=== PATIENT | female | born 1995 | race Caucasian/White ===

== ENCOUNTER → 2018-08-22 00:24 | Observation (INO) ==
[2018-08-21 23:19] LABS: Amphetamine Screen,Urine Negative ng/mL (Cutoff=1000); Barbiturate Screen,Urine Negative ng/mL (Cutoff=200); Benzodiazepines Screen,Urine Negative ng/mL (Cutoff=200); Cannabinoid Screen,Urine Negative ng/mL (Cutoff = 50); Cocaine Screen,Urine Negative ng/mL (Cutoff= 300); Opiate Screen,Urine Negative ng/mL (Cutoff=300); Phencyclidine Screen,Urine Negative ng/mL (Cutoff=25)
[2018-08-21 23:56] LABS: Trichomonas DNA Not Detected (Not Detect)
[2018-08-21 23:57] LABS: Candida DNA DETECTED (Not Detect); Gardnerella DNA DETECTED (Not Detect)
--- NOTE | 2018-08-22 00:09 | Discharge Summary ---
Date of Encounter: 08/22/18 Time of Encounter: 00:08 - Discharge Diagnosis (1) 37 weeks gestation of Priority: Primary Status: Acute Comments: Follow-up with Dr. Castrejon as scheduled Labor parameters discussed Discharge home (2) Bacterial vaginosis Priority: Secondary Status: Acute Comments: Prescription for Flagyl 500 mg twice a day 7 days given (3) Vulval candidiasis Priority: Secondary Status: Acute Comments: Clotrimazole 1% daily at bedtime for 7 consecutive days - Discharge Medications Prescriptions: Clotrimazole 1% CRM [Lotrimin 1%] 1 appl VG HS 7 Days #1 tube metroNIDAZOLE [Metronidazole] 500 mg PO BID #14 tablet Home Medications: Clotrimazole 1% CRM [Lotrimin 1%] 1 appl VG HS 7 Days #1 tube 08/22/18 [Rx] metroNIDAZOLE [Metronidazole] 500 mg PO BID #14 tablet 08/22/18 [Rx] Data Procedures and tests throughout hospitalization: Laboratory Tests 08/21/18 08/21/18 22:56 22:58 Urine Opiates Screen Negative Ur Barbiturates Screen Negative Ur Phencyclidine Scrn Negative Ur Amphetamines Screen Negative U Benzodiazepines Scrn Negative Urine Cocaine Screen Negative U Marijuana (THC) Screen Negative Ur Drug Screen Interp See Below Ashlie species DNA DETECTED A Gardnerella DNA Probe DETECTED A Trichomonas DNA Probe Not Detected Labs on day of discharge: Labs from last 24 hours 08/21/18 08/21/18 22:58 22:56 Urine Opiates Screen Negative Ur Barbiturates Screen Negative Ur Phencyclidine Scrn Negative Ur Amphetamines Screen Negative U Benzodiazepines Scrn Negative Urine Cocaine Screen Negative U Marijuana (THC) Screen Negative Ur Drug Screen Interp See Below Ashlie species DNA DETECTED A Gardnerella DNA Probe DETECTED A Trichomonas DNA Probe Not Detected Date of admission: 08/21/18 22:04 Discharging clinician: Bhumika Kyle Anticipated date of discharge: 08/22/18 - Patient Status Disposition: Home, Self-Care Condition: Good Functional capacity at discharge: independent ambulation Overall status at discharge: patient is progressing back to baseline - Discharge Instructions Follow Up With: Annabelle Castrejon DO [Partnered Physician] - - Diet and Activity Activity: increase activity as tolerated Diet: regular diet Hospital Course [employer] SU[employer]IST Reason for admission: other Discharge diagnosis: other Hospital course: Patient presents to labor and delivery with complaints of leakage of fluid intermittently since last night. She reports 1 episode of intercourse last night and when this morning. She states the leaking started after intercourse last night. She denies any odor or irritation associated with the leaking. Fern test was negative. Vaginosis panel is positive for both yeast and BV. Prescriptions were given. Cervical exam was unchanged from office /-. Patient was sent home in stable condition Time Attestation: Total time spent providing and/or coordinating discharge services: Time Spent: Less than 30 minutes Exam - Constitutional General appearance IM: A&O X 3 - Respiratory Respiratory exam: Present: CTAB - Cardiovascular Cardiovascular exam IM: Present: RRR, +S1, +S2 - GI/Abdominal GI/Abdominal exam IM: normal bowel sounds, no peritoneal signs - Rectal Rectal exam: deferred - Uterine Tone: Firm - Extremities Exam Extremities exam IM: Present: normal capillary refill, normal inspection, radial pulses palpable and symmetrical - Neurological Exam Neurological exam: alert, CN II-XII intact, normal gait, oriented X3, reflexes normal, no focal deficits, strengths equal and symetr throughout - VTE Reasons for not Prescribing Prophylaxis: Treatment not Indicated - Low risk for VTE
== END | disposition home or self-care (01) ==
LOC: 1NENULAB
PROVIDERS: ADMIT Advanced Practice Midwife; ATTEND Advanced Practice Midwife

== ENCOUNTER 2018-08-22 05:07 | Inpatient (IN) ==
[~2018-08-22 05:07] MED LIST: *HR* Nalbuphine 10 MG/ML AMPUL IVP PRN; Famotidine 20 MG/2 ML VIAL IVP PRN; Lidocaine 1% 20 ML MDV INFILT PRN; Metoclopramide 10 MG/2 ML VIAL IVP PRN; Naloxone 0.4 MG/ML INJ IVP PRN; Ondansetron 4 MG/2 ML VIAL IVP PRN
[2018-08-22] MEDS ORDERED: Ringers Solution, Lactated 1,000 ML IVC SCH (05:15)
--- NOTE | 2018-08-22 05:20 | OB/GYN History & Physical ---
Date of Encounter: 08/22/18 Time of Encounter: 05:15 Assessment and Plan (1) SROM (spontaneous rupture of membranes) Current visit: Yes Status: Acute Expectant management (2) Intrauterine Current visit: Yes Status: Acute Admit to L&D for observation of labor Expectant management - will consider augmentation if no change after several hours GBS -, no prophylaxis required Pain mangement plan is epidural - may have that or nubain on request SROM - Anticipate (3) 37 weeks gestation of Current visit: Yes Status: Acute History of Present Illness Chief complaint: SROM 0350 HPI: Ms. Nicolas is a 22 year old female at 37 weeks 5 days gestation with an estimated date of of 09/07/18 dated by LMP. She presents this evening with complaints of spontaneous rupture of membranes at 0350 this morning. She endorses good movement and denies vaginal bleeding. She does report early labor contractions that are at the bottom of her abdomen and feel like period cramps. She reports clear fluid and no odor. Labs: A+ GBS- Hep B- HIV- RPR NR GC/CL- Rubella immune Varicella immune Past Med Surg Social Fam HX - Past Medical History Medical history: no medical history Psychiatric history: no psych history - Past Surgical History Surgical History: no surgical history - Social History Smoking Status: Never smoker Smokeless Tobacco Status: No Alcohol use: none Drug use: none - Family History Mother Living Status: Still Living Hx Family Cardiac Disorders: No Hx Family Respiratory Disorders: No Hx Family Cancer: Yes (skin cancer) Hx Family GI Disorders: No Hx Family Endocrine Disorder: No Hx Family Neuromuscular Disorders: No Hx Family Neurologic Disorders: No Hx Family HEENT Disorders: No Hx Family Autoimmune Disorders: No Obstetrical History - Pregnancies : 1 Para: 0 Term: 0 : 0 Ab's: 0 Livin Medications and Allergies Clotrimazole 1% CRM [Lotrimin 1%] 1 appl VG HS 7 Days #1 tube 08/22/18 [Rx] metroNIDAZOLE [Metronidazole] 500 mg PO BID #14 tablet 08/22/18 [Rx] Allergy/AdvReac Type Severity Reaction Status Date / Time No Known Allergies Allergy Verified 08/22/18 01:18 Review of System OB All systems PM: reviewed and no additional remarkable complaints except as stated Exam - Constitutional Constitutional: well developed, well nourished, no acute distress, obese - HEENT HEENT: Normocephaly, Mucus Membranes Moist - Neck Neck exam: full ROM - Lungs Respiratory exam: CTAB - Cardiovascular Cardiovascular exam: RRR, +S1, +S2 - Breasts Breast: bilateral: normal - Abdomen Abdomen: Present: bowel sounds normal, gravid, non tender - Extremities Extremities exam: normal capillary refill, normal inspection, radial pulses palpable and symmetrical - Vulva Vulva: bilateral: normal - Vagina Vagina: Present: normal moisture - Cervix Dilation: 3 Effacement: 80 Station: -2 - Uterus Uterus exam: Present: normal size, normal contour - Adnexa Adnexa: bilateral: normal - Anus/Rectum Anus/Rectum: Present: normal perianal skin Results All other labs normal. - VTE Reasons for not Prescribing Prophylaxis: Treatment not Indicated - Low risk for VTE
[2018-08-22 05:59] LABS: Basophils # 0.1 K/mcL (0.0-0.2); Basophils % 0.3 %; Eosinophils # 0.1 K/mcL (0.0-0.6); Eosinophils % 0.8 %; Hematocrit 41.2 % (35.3-44.9); Hemoglobin 13.7 g/dL (11.5-15.4); Immature Granulocytes % 0.6 % (0-4); Lymphocytes # 2.7 K/mcL (0.6-4.6); Mean Corpuscular HGB Conc 33.3 g/dL (31.6-35.5); Mean Corpuscular Hemoglobin 32.2 pg (28.0-33.3); Mean Corpuscular Volume 96.9 fL (83.0-100.0); Mean Platelet Volume 12.3 fL (9.4-12.4); Monocytes # 1.5 K/mcL (0.0-1.3); Monocytes % 9.2 %; Neutrophils # 11.6 K/mcL (1.6-8.9); Platelet Count 222 K/mcL (140-400); Red Blood Count 4.25 M/mcL (3.82-4.97); Red Cell Distribution Width 13.3 % (11.5-14.5); Segmented Neutrophils % 72.1 %
[2018-08-22] MEDS ORDERED: Epidural Premix (fent/bupiv) 110 ML EP SCH (07:30)
--- NOTE | 2018-08-22 08:23 | OB Labor Progress Note ---
Date of Encounter: 08/22/18 Time of Encounter: 08:22 Labor Progress Note - Subjective Subjective: Patient coping well with contractions. She is currently up on birthing ball with significant other at side. - Vital Signs Vital Signs: WNL, Afebrile - Cervix Cervix: 5/90/-1 - Heart Tones Heart Tones: FHR 130 bpm, moderate variability, +15x15 accels, no decels. - [place]: 5-6 bpm - Interventions Interventions: SVE AROM forebag for scant amount clear fluid Discussed augmentation options with patient. She is agreeable to begin Pitocin augmentation after epidural placement - Plan Physician notified: Yes Physician notified details: Dr. Soares aware of patient progress and plan of care Plan: Patient desires epidural at this time. Begin Pitocin augmentation after placement of epidural Anticipate
[2018-08-22] MEDS ORDERED: Lidocaine -MPF 1% 5 ML AMPUL ONE (09:05)
--- NOTE | 2018-08-22 10:00 | Anesthesia Evaluation PreOp ---
Date of Encounter: 08/22/18 Time of Encounter: 09:00 - Past History Planned Operation: ARIEL Cardiac History: Denies any Significant Hx Pulmonary History: Denies Any Significant HX HOTEL FRONT DESK CLERK History: Denies Any Significant HX Other Medical History: Denies Any Significant HX Anesthesia History: No Prior Anesthetic Complications : Yes Alcohol Use: none Drug use: none Medications and Allergies Clotrimazole 1% CRM [Lotrimin 1%] 1 appl VG HS 7 Days #1 tube 08/22/18 [Rx] Pnv95/Ferrous Fumarate/FA [ Vitamin Tablet] 1 tab PO DAILY 08/22/18 [History] metroNIDAZOLE [Metronidazole] 500 mg PO BID #14 tablet 08/22/18 [Rx] Allergy/AdvReac Type Severity Reaction Status Date / Time No Known Allergies Allergy Verified 08/22/18 01:18 - Meds/Allergy Pre-op Review Medications Reviewed: Yes Allergies Reviewed: Yes Beta Blockers on Current Med List: No Anesthesia Results - Labs 08/22/18 05:20 Anesthesia Exam - HEENT Pupil (Motor): Pupils equal Mallampati: II Oral Opening: Greater than 3 - HOTEL [employer] DESK CLERK LOC: Oriented [employer]OT[employer] FRONT DESK CLERK Motor: Normal RUE, Normal LUE, Normal RLE, Normal LLE, Normal Face HOTEL FRONT DESK CLERK Sensory: Normal: RUE, LUE, RLE, LLE, Face - Cardiac Rhythm: Regular Murmur: None JVD: No Carotid Bruit: No - Pulmonary Breath Sounds: bilateral Clear Respiratory Effort: Symmetrical Anesthesia Assess/Plan ASA Score: 2 Level of consciousness: Cooperative Anesthetic Plan: Epidural Monitoring Plan: Standard Monitors
--- NOTE | 2018-08-22 10:03 | Anesthesia Procedures ---
Addendum entered and electronically signed by Jovany Au CRNA 08/22/18 16:49: Infant Delivery Date: 08/22/18 Infant Delivery Time: 15:06 Original Note: Date of Encounter: 08/22/18 Time of Encounter: 09:00 Procedures: Anesthesia - Epidural/Spinal Patient ID/Chart reviewed: Yes Patient examined: Yes OB Eval: Gestational age: 37.5 OB Eval: : 1 OB Eval: Hx Para: 0 OB Eval: Dilated at (cm): 5 OB Eval: Contractions: Non-stressed pattern Consent Obtained: Yes Site Prep: Aseptic Technique, Sterile prep and drape, Povidone-Iodine 1% Patient position: upright Amount of Local Anesthetic used: 3 Touhy Needle Gauge: 18 Touhy Needle Depth (cm): 6 Catheter Depth at Skin (cm): 8 Test Dose (1.5% Lido + Epi): Volume given (mls): 3 Test Dose Result: Negative Infusion Rate (mls/hr): [address]: Tegaderm Interspace Used: L4-L5 Loss of Resistance (MATIAS): Yes Blood: No CSF: No Paresthesia: No Vitals + FHT's: VSS FHT stable throughout see nursing notes
[2018-08-22] MEDS ORDERED: Oxytocin 20 units/ LR 1000 mL 20 UNIT/1,000 ML BAG IVC SCH ×2 (10:30→16:47)
[2018-08-22] MEDS ORDERED: 0.9 % Sodium Chloride 1,000 ML ONE (10:40)
--- NOTE | 2018-08-22 10:48 | OB Labor Progress Note ---
Date of Encounter: 08/22/18 Time of Encounter: 10:44 Labor Progress Note - Subjective Subjective: Patient without pain after epidural placement. Resting comfortably - Vital Signs Vital Signs: WNL, Afebrile - Cervix Cervix: 7/90/-1 - Heart Tones Heart Tones: FHR 125 bpm, moderate variability, +15x15 accels, one 7 minute deceleration, resolved with position change and fluid bolus. - [place]: 5-6 minutes - Interventions Interventions: SVE Position change, IVF bolus FSE & IUPC placed Amnioinfusion started - Plan Physician notified: Yes Physician notified details: Dr. Soares in room for deceleration and interventions. Plan: Continue labor management May initiate Pitocin after reactive tracing established Amnioinfusion
--- NOTE | 2018-08-22 13:18 | OB Labor Progress Note ---
Date of Encounter: 08/22/18 Time of Encounter: 13:14 Labor Progress Note - Subjective Subjective: Patient comfortable with epidural in place - Vital Signs Vital Signs: WNL, Afebrile - Cervix Cervix: Anterior lip/ 0 station - Heart Tones Heart Tones: FHR 120 bpm, moderate variability, +15x15 accels, occassional variable decel, prolonged decel with return to baseline after interventions. - [place]: 3-4 minutes - Interventions Interventions: SVE Attemted to push with one contractions. Maternal efforts ineffective Position change - Plan Physician notified: Yes Physician notified details: Dr. Soares at nurses station and aware of FHR tracing and SVE Plan: Discussed laboring down with patient and she is agreeable to this as long as baby tolerates. Will continue expectant management Anticipate
--- NOTE | 2018-08-22 16:04 | Discharge Summary ---
Date of Encounter: 08/22/18 - Discharge Medications Home Medications: Clotrimazole 1% CRM [Lotrimin 1%] 1 appl VG HS 7 Days #1 tube 08/22/18 [Rx] Pnv95/Ferrous Fumarate/FA [ Vitamin Tablet] 1 tab PO DAILY 08/22/18 [History] metroNIDAZOLE [Metronidazole] 500 mg PO BID #14 tablet 08/22/18 [Rx] Allergies/Adverse Reactions: Allergy/AdvReac Type Severity Reaction Status Date / Time No Known Allergies Allergy Verified 08/22/18 01:18 Data Procedures and tests throughout hospitalization: Laboratory Tests 08/22/18 05:20 WBC 16.0 H RBC 4.25 Hgb 13.7 Hct 41.2 MCV 96.9 MCH 32.2 MCHC 33.3 RDW 13.3 Plt Count 222 MPV 12.3 Immature Gran % 0.6 Seg Neutrophils % 72.1 Lymphocytes % 17.0 Monocytes % 9.2 Eosinophils % 0.8 Basophils % 0.3 Neutrophils # 11.6 H Lymphocytes # 2.7 Monocytes # 1.5 H Eosinophils # 0.1 Basophils # 0.1 Labs on day of discharge: Labs from last 24 hours 08/22/18 05:20 WBC 16.0 H RBC 4.25 Hgb 13.7 Hct 41.2 MCV 96.9 MCH 32.2 MCHC 33.3 RDW 13.3 Plt Count 222 MPV 12.3 Immature Gran % 0.6 Seg Neutrophils % 72.1 Lymphocytes % 17.0 Monocytes % 9.2 Eosinophils % 0.8 Basophils % 0.3 Neutrophils # 11.6 H Lymphocytes # 2.7 Monocytes # 1.5 H Eosinophils # 0.1 Basophils # 0.1 Date of admission: 08/22/18 04:57 Hospital Course Time Attestation: Total time spent providing and/or coordinating discharge services:
--- NOTE | 2018-08-22 16:07 | OB/GYN Procedure Note ---
Delivery - Delivery Date: 08/22/18 Provider: Lelia Carrero Delivery induction: none Delivery monitor: internal FHT, internal uterine Anesthesia: epidural Quantitated Blood Loss: 100 - (s) A Infant Delivery Date: 08/22/18 Delivery Time: 15:06 Presentation: vertex Position: VIET Route of delivery: Gender: Female Viability: Viable Pounds: 7 Ounces: 1 at 1 minute: 7 at 5 mins: 7 Shoulder Dystocia: not encountered Specimens collected: cord blood Placenta: spontaneous Cord: 3 umbilical vessels - Repair Episiotomy: none Laceration Description: Perineal - 1st Degree, Labial - Complications Delivery complications: none Delivery comments: Called to room for delivery. Under maternal effort, spontaneous delivery of viable female infant over first-degree perineal laceration. placed on maternal abdomen for drying and stimulation. Cord clamped and cut at request of nursery nurse. Apgars 7 and 7 at one and 5 minutes respectively. Infant required 15 seconds of PPV . Spontaneous delivery of intact placenta, EBL 100 mL's. No nuchal cord, shoulder dystocia, or meconium encountered. Mother and infant in kangaroo care. Infant will be taken to the special care nursery for 6 hour observation due to resuscitation measures. First-degree perineal laceration repaired with 3-0 Vicryl. Extensive lacerations noted to bilateral labia and periurethral area. Dr. Sauceda requested to repair those lacerations. Called to labor and delivery room for evaluation of perineum and vagina after delivery by retail greeting card merchandiser. Mother and baby doing well. Patient currently with epidural. Experiencing no pain. Vulva and vagina were examined. Right labia minora with large laceration through the entire labia itself. Left labia in two and adhering to the vulva at the base of each portion. I began repairing at the anterior portion first on the right side repairing the labia with interrupted sutures taking the external mucosa with approximate 4 individual stitches. The inside of the labia was then reattached in a similar fashion. Again there was minimal blood loss throughout this entire repair. The left labia was examined. The anterior portion which had been torn off was brought down to its correct position and reattached internally and externally and at the base. The inferior portion which had torn off was repaired in a similar fashion with the external mucosa be reapproximated in the internal mucosa reapproximated with internal stitches. The 2 portions of labia that were then reapproximated together. Perineum was good no lacerations needing repair retail greeting card merchandiser and done a good job here. - Disposition Mom disposition: stable in LDR disposition: stable in LDR
[2018-08-22] MEDS ORDERED: Acetaminophen 325 MG TABLET PO PRN (16:47)
[2018-08-22] MEDS ORDERED: Ibuprofen 600 MG TABLET PO ONE (16:47)
[2018-08-22] MEDS ORDERED: Benzocaine/Menthol 56 GM AEROSOL SPRAY TP PRN (16:47)
[2018-08-22] MEDS ORDERED: Lanolin 7 G OINT...G. TP PRN (16:47)
[2018-08-22] MEDS ORDERED: Measles/Mumps/Rubella Vacc 0.5 ML VIAL SQ PRN (16:47)
[2018-08-22] MEDS ORDERED: Fluconazole 100 MG TABLET PO ONE (18:30)
[2018-08-22] MEDS: metroNIDAZOLE 500 MG TABLET PO SCH (20:13)
[2018-08-23] MEDS: Ibuprofen 600 MG TABLET PO PRN ×2 (00:15→20:48)
[2018-08-23] MEDS ORDERED: *HR* HYDROcodone/Acet 5/325 mg TABLET PO PRN (07:01)
[2018-08-23] MEDS: Prenatal Vit/FA 1 EACH TABLET PO SCH (09:03)
--- NOTE | 2018-08-23 09:18 | OB/GYN Progress Note ---
Date of Encounter: 08/23/18 Time of Encounter: 09:12 - Assessment and Plan (1) Vaginal delivery Current Visit: Yes Status: Acute Continue routine Anticipate discharge home Subjective - Subjective Principal diagnosis: Vaginal delivery Interval history: S/P vaginal delivery day 1 Pain well controlled; labia sore after extensive repair Lochia light and without clots VSS Tolerating regular diet; passing flatus Voiding without difficulty Breast feeding Anticipate discharge home tomorrow POC per consult with Dr Franco Patient reports: appetite normal, voiding normally, pain well controlled, ambulating normally [place]: doing well, nursing well Objective - Latest Vital Signs Latest vital signs: Vital Signs Temp Pulse Pulse Resp BP Pulse Ox 08/23/18 07:40 97.7 F 87 16 107/69 94 08/23/18 03:51 97.5 F L 99 16 108/70 97 08/22/18 20:15 97.5 F L 93 16 110/73 99 08/22/18 19:15 98.3 F 96 100 16 108/71 96 08/22/18 18:15 99 F 100 100 16 120/80 Intake and Output 08/22/18 08/23/18 08/23/18 23:59 07:59 15:59 Intake Total 500 / 500 Output Total 2099 / 2099 Balance -1600 / -1600 Intake: Oral 500 / 500 Output: Urine 2099 - Exam Lungs: bilateral: normal Chest: Normal S1, Normal S2 Extremities: Present: normal Abdomen: Present: normal appearance, soft. Absent: gravid, tenderness Uterus: Present: normal, firm Uterus Position: At Umbilicus, Midline
[2018-08-23] MEDS: metroNIDAZOLE 500 MG TABLET PO SCH ×2 (09:52→20:48)
[2018-08-24 08:15] VITALS: BP 100/64
[2018-08-24] MEDS: Ibuprofen 600 MG TABLET PO PRN (08:53)
[2018-08-24] MEDS: metroNIDAZOLE 500 MG TABLET PO SCH (08:54)
[2018-08-24] MEDS: Prenatal Vit/FA 1 EACH TABLET PO SCH (08:54)
--- NOTE | 2018-08-24 08:59 | Discharge Summary ---
Date of Encounter: 08/24/18 Time of Encounter: 08:57 - Discharge Diagnosis (1) Obstetric labial laceration, delivered, current hospitalization Priority: Secondary Status: Acute Comments: Patient states her pain is well-controlled with scheduled medications. She has Epifoam and Dermoplast and is using them as needed Labia are intact, well perfused, and not swollen. To follow-up in 4 weeks as scheduled for routine as part of visit with Dr. Castrejon. (2) Vaginal delivery Priority: Primary Status: Acute Comments: Patient meeting day two milestones. Pain well-controlled with prescribed medications. Voiding without difficulty. No bowel movement yet. Anticipate discharge today - Discharge Medications Prescriptions: Ibuprofen [Motrin] 600 mg PO Q6HR PRN #60 tablet PRN Reason: Cramping Benzocaine/Menthol [place] [Dermoplast [place]] 1 appl TP QID PRN #1 bottle PRN Reason: See Comments Docusate [Colace] 100 mg PO BID #60 capsule Home Medications: Pnv95/Ferrous Fumarate/FA [ Vitamin Tablet] 1 tab PO DAILY 08/22/18 [History] metroNIDAZOLE [Metronidazole] 500 mg PO BID #14 tablet 08/22/18 [Rx] Acetaminophen [Tylenol] 650 mg PO Q6HR PRN tablet 08/24/18 [Rx] Benzocaine/Menthol [place] [Dermoplast [place]] 1 appl TP QID PRN #1 bottle 08/24/18 [Rx] Dibucaine [Nupercainal] 1 appl TP HS PRN tube 08/24/18 [Rx] Docusate [Colace] 100 mg PO BID #60 capsule 08/24/18 [Rx] Hydrocortisone/Pramoxine [Epifoam] 1 appl TP TID bottle 08/24/18 [Rx] Ibuprofen [Motrin] 600 mg PO Q6HR PRN #60 tablet 08/24/18 [Rx] Lanolin [Lansinoh] 1 appl TP TID PRN oint...g. 08/24/18 [Rx] Allergies/Adverse Reactions: Allergy/AdvReac Type Severity Reaction Status Date / Time No Known Allergies Allergy Verified 08/22/18 01:18 Data Procedures and tests throughout hospitalization: Laboratory Tests 08/22/18 05:20 WBC 16.0 H RBC 4.25 Hgb 13.7 Hct 41.2 MCV 96.9 MCH 32.2 MCHC 33.3 RDW 13.3 Plt Count 222 MPV 12.3 Immature Gran % 0.6 Seg Neutrophils % 72.1 Lymphocytes % 17.0 Monocytes % 9.2 Eosinophils % 0.8 Basophils % 0.3 Neutrophils # 11.6 H Lymphocytes # 2.7 Monocytes # 1.5 H Eosinophils # 0.1 Basophils # 0.1 Date of admission: 08/22/18 05:07 Primary care physician: PCP PEDRO Consults: 08/22/18 16:47 Consult to Personal Injury Legal Assistant [CONS] Routine Comment: Vaginal delivery, consult needed Discharging clinician: Lelia Carrero Anticipated date of discharge: 08/24/18 - Patient Status Disposition: Home, Self-Care Condition: Good Functional capacity at discharge: independent ambulation Overall status at discharge: patient is progressing back to baseline - Discharge Instructions Follow Up With: NONE,PCP [Primary Care Provider] - Annabelle Castrejon DO [Partnered Physician] - - Diet and Activity Activity: resume usual activities as tolerated Diet: regular diet Hospital Course Reason for admission: active labor Delivery: Episiotomy: none Laceration: other (extensive labial lacerations) Other procedures: none complications: none Discharge diagnosis: IUP at term delivered baby: female Hospital course: Patient meeting day milestones. Pain well-controlled with prescribed medications. She does not feel she needs Vicodin to go home with as the spray and Motrin are more helpful for her pain. Voiding without difficulty, bleeding light to moderate, tolerating regular diet. No bowel movement yet. Anticipate discharge today - Delivery Date: 08/22/18 Provider: Lelia Carrero Delivery induction: none Delivery monitor: internal FHT, internal uterine Anesthesia: epidural Quantitated Blood Loss: 100 - Infant (s) Infant A Delivery Date: 08/22/18 Delivery Time: 15:06 Presentation: vertex Position: VIET Route of delivery: Gender: Female Viability: Viable Pounds: 7 Ounces: 1 at 1 minute: 7 at 5 mins: 7 Shoulder Dystocia: not encountered Specimens collected: cord blood Placenta: spontaneous Cord: 3 umbilical vessels - Repair Episiotomy: none Laceration Description: Perineal - 1st Degree, Labial - Complications Delivery complications: none Delivery comments: Called to room for delivery. Under maternal effort, spontaneous delivery of viable female infant over first-degree perineal laceration. placed on maternal abdomen for drying and stimulation. Cord clamped and cut at request of nursery nurse. Apgars 7 and 7 at one and 5 minutes respectively. Infant required 15 seconds of PPV . Spontaneous delivery of intact placenta, EBL 100 mL's. No nuchal cord, shoulder dystocia, or meconium encountered. Mother and infant in kangaroo care. will be taken to the special care nursery for 6 hour observation due to resuscitation measures. First-degree perineal laceration repaired with 3-0 Vicryl. Extensive lacerations noted to bilateral labia and periurethral area. Dr. Sauceda requested to repair those lacerations. Called to labor and delivery room for evaluation of perineum and vagina after delivery by benefits assistant. Mother and baby doing well. Patient currently with epidural. Experiencing no pain. Vulva and vagina were examined. Right labia minora with large laceration through the entire labia itself. Left labia in two and adhering to the vulva at the base of each portion. I began repairing at the anterior portion first on the right side repairing the labia with interrupted sutures taking the external mucosa with approximate 4 individual stitches. The inside of the labia was then reattached in a similar fashion. Again there was minimal blood loss throughout this entire repair. The left labia was examined. The anterior portion which had been torn off was brought down to its correct position and reattached internally and externally and at the base. The inferior portion which had torn off was repaired in a similar fashion with the external mucosa be reapproximated in the internal mucosa reapproximated with internal stitches. The 2 portions of labia that were then reapproximated together. Perineum was good no lacerations needing repair benefits assistant and done a good job here. - Disposition Mom disposition: stable in LDR disposition: stable in LDR Time Attestation: Total time spent providing and/or coordinating discharge services: Time Spent: Less than 30 minutes Exam - Constitutional Vitals: Temp Pulse Resp BP Pulse Ox 98.1 F 80 14 100/64 97 08/24/18 08:14 08/24/18 08:14 08/24/18 08:14 08/24/18 08:14 08/24/18 08:14 General appearance IM: pleasant, no acute distress, answers questions appropriately - Respiratory Respiratory exam: Present: CTAB - Cardiovascular Cardiovascular exam IM: Present: RRR, +S1, +S2 - GI/Abdominal GI/Abdominal exam IM: normal bowel sounds - Rectal Rectal exam: deferred - Uterine Tone: Firm Uterus Position: 1 Finger Below Umbilicus - Extremities Exam Extremities exam IM: Present: full ROM, normal capillary refill, normal inspection, pedal edema - Neurological Exam Neurological exam: alert, normal gait, oriented X3
== END 2018-08-24 16:52 | disposition home or self-care (01) | DRG 807 ==
LOC: 1NENULAB → 1NENUOBS 19:46
PROVIDERS: ADMIT Advanced Practice Midwife; ATTEND Advanced Practice Midwife

== ENCOUNTER 2021-11-04 09:49 | Inpatient (IN) ==
[2021-11-04] MEDS ORDERED: Famotidine 20 MG/2 ML VIAL IVP PRN (10:38)
[2021-11-04] MEDS ORDERED: miSOPROStoL 25 MCG TABLET VG PRN (10:38)
[2021-11-04] MEDS ORDERED: *HR* Nalbuphine 10 MG/ML AMPUL IV PRN (10:38)
[2021-11-04] MEDS ORDERED: Naloxone 0.4 MG/ML INJ IVP PRN ×2 (10:38→12:18)
[2021-11-04] MEDS ORDERED: Metoclopramide 10 MG/2 ML VIAL IVP PRN (10:38)
[2021-11-04] MEDS ORDERED: Ringers Solution, Lactated 1,000 ML IVC SCH (10:45)
[2021-11-04 12:02] LABS: Basophils # 0.1 K/mcL (0.0-0.2); Basophils % 0.5 %; Eosinophils % 0.3 %; Hematocrit 43.5 % (35.3-44.9); Hemoglobin 14.1 g/dL (11.5-15.4); Immature Granulocytes % 0.6 % (0-4); Lymphocytes # 2.5 K/mcL (0.6-4.6); Lymphocytes % 19.3 %; Mean Corpuscular HGB Conc 32.4 g/dL (31.6-35.5); Mean Corpuscular Hemoglobin 31.2 pg (28.0-33.3); Mean Corpuscular Volume 96.2 fL (83.0-100.0); Mean Platelet Volume 12.4 fL (9.4-12.4); Monocytes # 0.9 K/mcL (0.0-1.3); Monocytes % 7.2 %; Neutrophils # 9.4 K/mcL (1.6-8.9); Platelet Count 239 K/mcL (140-400); Red Blood Count 4.52 M/mcL (3.82-4.97); Red Cell Distribution Width 13.9 % (11.5-14.5); Segmented Neutrophils % 72.1 %
[2021-11-04] MEDS ORDERED: *HR* FentaNYL (PF) 100 MCG/2 ML VIAL EP ONE (12:18)
[2021-11-04] MEDS ORDERED: EPHEDrine 50 MG/ML VIAL IVP PRN (12:18)
[2021-11-04] MEDS ORDERED: Ondansetron 4 MG/2 ML VIAL IVP PRN (12:18)
[2021-11-04] MEDS ORDERED: Ropivacaine/PF 0.2% 20 ML VIAL EP ONE (12:18)
[2021-11-04] MEDS ORDERED: Epidural Premix (fent/bupiv) 110 ML EP SCH (12:30)
[2021-11-04 12:34] LABS: Alanine Aminotransferase 7 Units/L (7-52); Aspartate Amino Transferase 12 Units/L (13-39); BUN/Creatinine Ratio 9 (6-26); Blood Urea Nitrogen 6 mg/dL (6-20); Lactate Dehydrogenase 134 Units/L (140-271); Uric Acid 4.7 mg/dL (2.3-7.6); eGFR For African Americans > 60 (> 60); eGFR For Non-African Americans > 60 (> 60)
[2021-11-04 13:27] LABS: Amphetamine Screen,Urine Negative ng/mL (Cutoff=1000); Barbiturate Screen,Urine Negative ng/mL (Cutoff=200); Benzodiazepines Screen,Urine Negative ng/mL (Cutoff=200); Cannabinoid Screen,Urine Negative ng/mL (Cutoff = 50); Cocaine Screen,Urine Negative ng/mL (Cutoff= 300); Creatinine,Urine 145 mg/dL; Opiate Screen,Urine Negative ng/mL (Cutoff=300); Phencyclidine Screen,Urine Negative ng/mL (Cutoff=25); Protein/Creatinine Ratio,Urine 0.63 mg/mg (0.00-0.20)
[2021-11-04] MEDS ORDERED: Oxytocin 20 units/ LR 1000 mL 20 UNIT/1,000 ML BAG IVC ONE (17:31)
[2021-11-04] MEDS ORDERED: *HR* OxyCODONE Immed Rel 5 MG TABLET PO PRN (20:39)
[2021-11-04] MEDS ORDERED: Benzocaine/Menthol 56 GM AEROSOL SPRAY TP PRN (20:39)
[2021-11-04] MEDS ORDERED: Oxytocin 20 units/ LR 1000 mL 20 UNIT/1,000 ML BAG IVC SCH (20:39)
[2021-11-04] MEDS ORDERED: Lanolin 7 G OINT...G. TP PRN (20:39)
[2021-11-04] MEDS ORDERED: Ondansetron ODT 4 MG TAB.RAPDIS SL PRN (20:39)
[2021-11-04] MEDS ORDERED: Acetaminophen 325 MG TABLET PO SCH (21:00)
[2021-11-05] MEDS ORDERED: Ibuprofen 600 MG TABLET PO SCH
[2021-11-05 04:11] LABS: Basophils # 0.1 K/mcL (0.0-0.2); Basophils % 0.3 %; Eosinophils % 0.2 %; Hematocrit 35.9 % (35.3-44.9); Immature Granulocytes % 0.5 % (0-4); Lymphocytes # 2.9 K/mcL (0.6-4.6); Lymphocytes % 16.6 %; Mean Corpuscular HGB Conc 33.7 g/dL (31.6-35.5); Mean Corpuscular Hemoglobin 32.4 pg (28.0-33.3); Mean Corpuscular Volume 96.2 fL (83.0-100.0); Mean Platelet Volume 11.9 fL (9.4-12.4); Monocytes # 1.4 K/mcL (0.0-1.3); Monocytes % 7.9 %; Platelet Count 232 K/mcL (140-400); Red Blood Count 3.73 M/mcL (3.82-4.97); Red Cell Distribution Width 13.9 % (11.5-14.5); Segmented Neutrophils % 74.5 %; White Blood Count 17.4 K/mcL (4.3-11.1)
[2021-11-05 04:12] LABS: Hemoglobin 12.1 g/dL (11.5-15.4)
[2021-11-05 07:35] VITALS: BP 112/70; PULSE 84; TEMP 98.5; O2SAT 95
[2021-11-05] MEDS ORDERED: Prenatal Vit/FA 1 EACH TABLET PO SCH (09:00)
== END 2021-11-05 18:30 | disposition home or self-care (01) | DRG 806 ==
LOC: 1NENULAB 09:49 → 1NENUOBS 20:39
PROVIDERS: ADMIT Obstetrics & Gynecology; ATTEND Obstetrics & Gynecology